=== PATIENT | male | born 1975 | race Caucasian/White ===

== ENCOUNTER 2016-07-19 22:31 | Emergency (ER) | payer OTHER ==
[~2016-07-19 22:31] MED LIST: ACCUPRIL PO; AMOXICILLIN PO; AMOXIL500 M1 PO; ATARAX PO; AUGMENTIN PO; BACTRIM DS TABL1 TA1 PO; BLOOD PRESSURE MED; BUSPAR PO; BUSPIRONE HCL10 MG PO; CELEXA PO; CELEXA20 MG PO; CHOLESTEROL PILL; CLARITIN10 M1 PO; CLONIDINE PO; DICLOFENAC PO; EC-NAPROSYN500 MG PO; FENOFIBRATE160 MG PO; FIORINAL CAPSUL1 CAP PO; FLEXERIL PO; FLEXERIL10 M1 PO; FLEXERIL10 MG PO; GABAPENTIN300 M2 PO; HCTZ PO; HYDRALAZINE HCL25 MG; HYDROCODON-ACE1 EAC9 PO; IBUPROFEN PO; IBUPROFEN800 MG PO; KEFLEX500 M2 PO; LISINOPRIL PO; LISINOPRIL-HCTZ1 T18 PO; LISINOPRIL10 MG PO; LOPRESSOR; LORTAB 101 TAB 10/5 PO; LORTAB 5/500 TA1 TA1 PO; LORTAB 7.5-5001 TAB PO; LOVAZA1 G PO; MEDROL4 MG/DOSE- PO; MOTRIN PO; NAPROSYN375 MG PO; NEURONTIN600 MG PO; NIASPAN PO; NORCO 7.5-3251 EACH PO; NORCO1 TAB 10/3 PO; PEN-VEE K PO; PERCOCET5/325 PO; PHENERGAN W/CO120 ML PO; PHENERGAN25 M1 PO; PHENERGAN25 MG PO; TORADOL10 MG PO; TRILIPIX PO; TYLENOL #3 PO; ULTRACET TABLET1 TAB PO; ULTRAM PO; VEETIDS 500500 M1 PO; VOLTAREN50 MG PO; VOLTAREN75 MG PO; ZOFRAN ODT4 MG PO; ZYRTEC PO
[2016-07-19] MEDS ORDERED: VICODIN ES 7.51 EAC1 (23:08)
[2016-07-19] MEDS ORDERED: PROZAC40 MG (23:08)
== END 2016-07-20 01:04 | disposition home or self-care (01) ==
LOC: SED 22:31
DX: K04.7 Periapical abscess without sinus (principal); K02.9 Dental caries, unspecified; I10 Essential (primary) hypertension; F41.9 Anxiety disorder, unspecified; E78.00 Pure hypercholesterolemia, unspecified; Z90.49 Acquired absence of other specified parts of digestive tract; Z79.899 Other long term (current) drug therapy
CPT/HCPCS: 99282

== ENCOUNTER 2016-07-23 19:18 | Emergency (ER) | payer OTHER ==
--- NOTE | ~2016-07-23 | CR142 ---
[facility] A Service of [facility] & [facility] RADIOLOGY TEXT RESULTS PATIENT: MIRIAN CANTU LOCATION: [facility] : 71 UNIT #: [id number] AGE: [address]: Redd Lorenzo DO SEX: M ORDER DR: [id number] [facility] [address] [place], [place] [address] [id number] E MR#: [id number] Acc #: [id number] NAME: MIRIAN CANTU : 1975 SEX: M STUDY DATE/TIME: 07/23/2016 UNIT: [facility] ROOM: STUDY DESCRIPTION: CR Hand Min 3 Views Rt Attending Physician: Redd Lorenzo D.O. Ordering Physician: [facility] Primary Care Physician: Phoebe Comer M.D. MEDICAL IMAGING REPORT This report is preliminary unless electronic signature is present EXAM 40-year-old man complaining of right hand pain today with swelling. Patient struck wall and anchor when arguing with his today. COMPARISON None FINDINGS The distal radius and ulna are intact. No carpal bone fracture is seen. The metacarpals and fingers appear normal. IMPRESSION No acute fracture or dislocation. Dictated by... Gregoria Cobb M.D. THIS IS AN ELECTRONICALLY VERIFIED REPORT Gregoria Cobb M.D. at 07/24/2016 8:49 AM NENAM/alban TD: 07/24/2016 07:31 JOB #: [id number] MEDICAL IMAGING REPORT Page 1 of 1 COPY
[~2016-07-23 19:18] MED LIST changes: +PROZAC40 MG; +VICODIN ES 7.51 EAC1
== END 2016-07-23 21:25 | disposition home or self-care (01) ==
LOC: CED 19:18
DX: S60.221A Contusion of right hand, initial encounter (principal); I10 Essential (primary) hypertension; F17.200 Nicotine dependence, unspecified, uncomplicated; X58.XXXA Exposure to other specified factors, initial encounter; Y92.098 Other place in other non-institutional residence as the place of occurrence of the external cause; Z79.899 Other long term (current) drug therapy
CPT/HCPCS: 29125; 73130; 96372; 99283; J1885

== ENCOUNTER 2016-07-24 21:22 | Emergency (ER) | payer OTHER ==
--- NOTE | ~2016-07-24 | CR142 ---
[facility]. [facility] A Service of [facility] & [facility] RADIOLOGY TEXT RESULTS PATIENT: MIRIAN CANTU LOCATION: SED : 71 UNIT #: [id number] AGE: [address]: Lei Alcantara MD SEX: M ORDER DR: [id number] [place] [id number] E MR#: [id number] Acc #: [id number] NAME: MIRIAN CANTU : 1975 SEX: M STUDY DATE/TIME: 07/24/2016 21:48 UNIT: SED ROOM: STUDY DESCRIPTION: CR Hand Min 3 Views Rt Attending Physician: Lei Alcantara M.D. Ordering Physician: Lei Alcantara M.D. Primary Care Physician: Phoebe Comer M.D. MEDICAL IMAGING REPORT This report is preliminary unless electronic signature is present. EXAM Right hand, 3 views HISTORY Hand pain since yesterday. Punched a wall. Bruising and swelling. FINDINGS Three views of the right hand demonstrate soft tissue swelling over the dorsum of the hand, slightly greater than yesterday's exam. Bone alignment is normal. No fracture, joint space narrowing or dislocation. IMPRESSION 1. Soft tissue swelling over the dorsum of the hand. 2. No fracture. Dictated by... Idris Singh M.D. THIS IS AN ELECTRONICALLY VERIFIED REPORT Idris Singh M.D. at 07/25/2016 11:10 PM DFL/psc TD: 07/25/2016 02:28 JOB #: [id number] MEDICAL IMAGING REPORT Page 1 of 1
== END 2016-07-25 00:50 | disposition home or self-care (01) ==
LOC: SED 21:22
DX: S60.221A Contusion of right hand, initial encounter (principal); F41.9 Anxiety disorder, unspecified; E78.00 Pure hypercholesterolemia, unspecified; F17.200 Nicotine dependence, unspecified, uncomplicated; W22.8XXA Striking against or struck by other objects, initial encounter; Y92.009 Unspecified place in unspecified non-institutional (private) residence as the place of occurrence of the external cause
CPT/HCPCS: 73130; 96372; 99283; J1170; J1885

== ENCOUNTER 2016-08-13 13:49 | Emergency (ER) | payer OTHER ==
--- NOTE | ~2016-08-13 | CR151 ---
[facility]. [facility] A Service of [facility] RADIOLOGY TEXT RESULTS PATIENT: MIRIAN CANTU LOCATION: SED : 71 UNIT #: [id number] AGE: [address]: Timmy Joya MD SEX: M ORDER DR: [id number] [place] [id number] E MR#: [id number] Acc #: [id number] NAME: MIRIAN CANTU : 1975 SEX: M STUDY DATE/TIME: 08/13/2016 14:01 UNIT: SED ROOM: STUDY DESCRIPTION: CR Hip Min 2 Views Rt Attending Physician: Timmy Joya M.D. Ordering Physician: Timmy Joya M.D. Primary Care Physician: Phoebe Comer M.D. MEDICAL IMAGING REPORT This report is preliminary unless electronic signature is present. EXAM Right hip 2 views, 08/13/2016 HISTORY Right hip pain extending into right leg after rough housing yesterday. FINDINGS Two views of the right hip demonstrate no fracture. The hip joints are normally maintained. The bones are normally mineralized. There is no soft tissue abnormality. IMPRESSION Negative right hip. Dictated by... Ilya Solano M.D. THIS IS AN ELECTRONICALLY VERIFIED REPORT Ilya Solano M.D. at 08/14/2016 8:09 AM PRIYA/isreal TD: 08/13/2016 15:03 JOB #: [id number] MEDICAL IMAGING REPORT Page 1 of 1
[2016-08-13] MEDS ORDERED: VOLTAREN75 MG PO (14:16)
[2016-08-13] MEDS ORDERED: PRAVACHOL PO (14:16)
== END 2016-08-13 15:06 | disposition home or self-care (01) ==
LOC: SED 13:49
DX: S70.01XA Contusion of right hip, initial encounter (principal); S39.011A Strain of muscle, fascia and tendon of abdomen, initial encounter; F41.9 Anxiety disorder, unspecified; Z90.49 Acquired absence of other specified parts of digestive tract; F17.200 Nicotine dependence, unspecified, uncomplicated; Z79.899 Other long term (current) drug therapy; W18.30XA Fall on same level, unspecified, initial encounter
CPT/HCPCS: 73502; 99283